=== PATIENT | male | born 1940 | race Native Hawaiian/Other Pacific Islander ===

== ENCOUNTER 2016-11-12 10:24 | Day surgery (SDC) | payer OTHER ==
[~2016-11-12 10:24] MED LIST: ALDACTONE25 MG PO; CARB25TA29 PO; CLARITIN10 MG PO; CLONIDINE0.1 MG PO; CLOP75TA2 PO; FOLI1TAB26 PO; GABA300C2 PO; GABAPENTIN600 MG PO; LASIX40 MG PO; LOSARTAN POT50 MG PO; LYRICA150 MG OR; MAGNESIUM500 M1 PO; METFORMIN1000 MG PO; MILLIPRED5 MG PO; MYSOLINE50 MG PO; NEXIUM40 M1 PO; NIFE60TA5 PO; PERCOCET1 TA1 PO; POTA20TA4 PO; ROPINIROLE2 M1 OR; SIMV20TA2 PO; SYNTHROID50 MCG PO; TIZANIDINE4 M1 PO
== END 2016-11-12 12:30 | disposition home or self-care (01) ==
LOC: OR 10:24
PROC: 08RK3JZ Replacement of Left Lens with Synthetic Substitute, Percutaneous Approach (ICD-10-PCS; principal; 2016-11-12)
DX: H25.812 Combined forms of age-related cataract, left eye (principal)
CPT/HCPCS: 66984; V2632

== ENCOUNTER 2016-12-10 08:55 | Day surgery (SDC) | payer OTHER | END 2016-12-10 11:15 | disposition home or self-care (01) | LOC: OR 08:55 | PROC: 08RJ3JZ Replacement of Right Lens with Synthetic Substitute, Percutaneous Approach (ICD-10-PCS; principal; 2016-12-10) | DX: H25.811 Combined forms of age-related cataract, right eye (principal) | CPT/HCPCS: 66984; V2632 ==

== ENCOUNTER 2017-02-20 08:50 | Outpatient (CLI) | payer OTHER ==
[2017-02-20 09:08] LABS: PLATELET COUNT 213 K/uL (142-355)
[2017-02-20 09:41] LABS: SODIUM 139 mmol/L (136-145)
== END 2017-02-20 19:04 | disposition home or self-care (01) ==
LOC: LABW 08:50
PROVIDERS: Physician Assistant
DX: N40.0 Benign prostatic hyperplasia without lower urinary tract symptoms (principal); E11.9 Type 2 diabetes mellitus without complications; K74.69 Other cirrhosis of liver
CPT/HCPCS: 36415; 80053; 80061; 84153; 84439; 84443; 85027

== ENCOUNTER 2017-03-15 14:54 | Inpatient (IN) | payer OTHER ==
[~2017-03-15] VITALS: Ht 185.4 cm; Wt 90.8 kg
--- NOTE | 2017-03-15 15:20 | NUR ---
PT TO ROOM 1107 VIA WC. PT ALERT AND ORIENTED. 02 ON AT 2L PER NC. NAD NOTED. ASSESSMENT COMPLETE. WOUNDS ASSESSED, MEASURED AND COVERED. IV STARTED TO R HAND X 1 ATTEMPT WITH 22G ANGIOCATH AND LABS DRAWN. PT TOLERATED WELL. ORIENTED PT TO ROOM AND CONTROLS. PT VERBALIZED UNDERSTANDING.
[2017-03-15 16:43] LABS: PLATELET COUNT 240 K/uL (142-355)
--- NOTE | 2017-03-15 17:19 | NUR ---
[id number]- PT TO XRAY
--- NOTE | 2017-03-15 17:51 | NUR ---
PT STILL IN XRAY AT THIS TIME. INFORMED ABX NOT STARTED DUR TO PT BEING IN XRAY SINCE [id number]
[2017-03-15 17:53] VITALS: BP 189/69; TEMP 98.2; Ht 185.4 cm; Wt 90.8 kg
[2017-03-15 20:00] VITALS: BP 199/65; TEMP 98.4
[2017-03-15] MEDS ORDERED: MYSOLINE50 MG OR (23:14)
[2017-03-15] MEDS ORDERED: PERCOCET1 TA3 PO (23:16)
[2017-03-15] MEDS ORDERED: DILTIAZEM HCL180 M2 PO (23:17)
[2017-03-15] MEDS ORDERED: AMIT10TA21 PO (23:18)
[2017-03-15] MEDS ORDERED: DONE5TAB PO (23:18)
[2017-03-15] MEDS ORDERED: MOBIC15 MG PO (23:19)
[2017-03-15] MEDS ORDERED: DULO30CA OR (23:20)
[2017-03-15] MEDS ORDERED: ROPINIROLE2 MG OR (23:21)
[2017-03-16] VITALS: BP 188/78; TEMP 98.2
[2017-03-16 04:00] VITALS: BP 161/80; TEMP 98.5
[2017-03-16 05:40] LABS: POTASSIUM 3.7 mmol/L (3.6-5.2); SODIUM 137 mmol/L (136-145)
[2017-03-16 05:47] LABS: PLATELET COUNT 240 K/uL (142-355)
[2017-03-16 08:00] VITALS: BP 195/82; TEMP 97.6
[2017-03-16 12:00] VITALS: BP 148/64; TEMP 98
[2017-03-16 16:00] VITALS: BP 181/82; TEMP 97.8
[2017-03-16 20:00] VITALS: BP 190/75; TEMP 98.7
[2017-03-17] VITALS: BP 107/71; TEMP 99.4
[2017-03-17 04:00] VITALS: BP 176/77; TEMP 98.7
[2017-03-17 05:10] LABS: PLATELET COUNT 246 K/uL (142-355)
[2017-03-17 05:12] LABS: POTASSIUM 4.1 mmol/L (3.6-5.2)
[2017-03-17 08:00] VITALS: BP 149/71; TEMP 97.8
[2017-03-17 12:00] VITALS: BP 167/62; TEMP 98
[2017-03-17 16:00] VITALS: BP 143/61; TEMP 97.8
[2017-03-17 20:00] VITALS: BP 145/66; TEMP 97.8
[2017-03-18] VITALS: BP 180/78; TEMP 98.2
[2017-03-18 04:00] VITALS: BP 156/71; TEMP 98.4
[2017-03-18 04:45] LABS: PLATELET COUNT 235 K/uL (142-355)
[2017-03-18 04:51] LABS: POTASSIUM 3.8 mmol/L (3.6-5.2)
[2017-03-18 08:00] VITALS: BP 181/79; TEMP 97.9
[2017-03-18 12:00] VITALS: BP 167/88; TEMP 98
[2017-03-18 16:00] VITALS: BP 179/70; TEMP 97.4
--- NOTE | 2017-03-18 16:27 | NUR ---
[id number] WILL CALL PT TO SET UP APPT TIME FOR WOUND CARE INSTRUCTIONS. PT VERBALIZED UNDERSTANDING. PT AWAITING FOR RIDE HOME.
== END 2017-03-18 17:30 | disposition home health service (06) | DRG 638 ==
LOC: MED/SURG 14:54
PROVIDERS: Emergency Medicine; ADMIT Internal Medicine
DX: E11.628 Type 2 diabetes mellitus with other skin complications (principal); L03.116 Cellulitis of left lower limb; L03.115 Cellulitis of right lower limb; E03.8 Other specified hypothyroidism; K21.9 Gastro-esophageal reflux disease without esophagitis; E88.09 Other disorders of plasma-protein metabolism, not elsewhere classified; B95.61 Methicillin susceptible Staphylococcus aureus infection as the cause of diseases classified elsewhere
CPT/HCPCS: 36415; 80048; 80053; 82948; 83735; 85027; 85379; 85651; 86141; 87070; 87077; 87185; 87186; 87205; 96367; 96372; J1815; J1956

== ENCOUNTER 2017-10-18 11:17 | Inpatient (IN) | payer OTHER ==
[~2017-10-18] VITALS: Ht 185.4 cm; Wt 102.2 kg
[2017-10-18] VITALS (18 sets, daily range): BP systolic 114–142; BP diastolic 56–90; TEMP 98.1–98.7; Ht 185.4 cm; Wt 102.2 kg
[~2017-10-18 11:17] MED LIST changes: +AMIT10TA21 PO; +DILTIAZEM HCL180 M2 PO; +DONE5TAB PO; +DULO30CA OR; +MOBIC15 MG PO; +MYSOLINE50 MG OR; +PERCOCET1 TA3 PO; +ROPINIROLE2 MG OR
[2017-10-18 12:12] LABS: PLATELET COUNT 218 K/uL (142-355)
[2017-10-18 12:18] LABS: POTASSIUM 4.3 mmol/L (3.6-5.2)
[2017-10-18] MEDS ORDERED: CLONIDINE HCL0.1 MG PO (14:25)
[2017-10-18] MEDS ORDERED: DIPH25CA90 PO (14:27)
[2017-10-18] MEDS ORDERED: [UNRECOGNIZED DRUG - OTHER] PO (14:29)
[2017-10-18] MEDS ORDERED: GLIM2TAB PO (14:29)
[2017-10-18] MEDS ORDERED: LEVO-T88 MCG PO (14:30)
[2017-10-18] MEDS ORDERED: ENDOCET1 TA1 PO (14:31)
[2017-10-18] MEDS ORDERED: REQUIP XL2 MG OR (14:33)
[2017-10-18] MEDS ORDERED: TAMSULOSIN0.4 MG PO (14:33)
[2017-10-19] VITALS (30 sets, daily range): BP systolic 130–1144; BP diastolic 70–99; TEMP 98.2–99.2
[2017-10-19 06:23] LABS: PLATELET COUNT 208 K/uL (142-355)
[2017-10-19 10:27] LABS: POTASSIUM 4.7 mmol/L (3.6-5.2)
[2017-10-20] VITALS (19 sets, daily range): BP systolic 123–179; BP diastolic 67–113; TEMP 98.1–99
[2017-10-20 11:06] LABS: POTASSIUM 5.1 mmol/L (3.6-5.2)
[2017-10-20 15:36] LABS: PLATELET COUNT 163 K/uL (142-355)
[2017-10-21] VITALS (14 sets, daily range): BP systolic 155–187; BP diastolic 50–102; TEMP 98–98.6
[2017-10-21 06:49] LABS: PLATELET COUNT 160 K/uL (142-355)
[2017-10-21 06:54] LABS: POTASSIUM 3.6 mmol/L (3.6-5.2)
[2017-10-22] VITALS: BP 187/82; TEMP 97.9
[2017-10-22 04:00] VITALS: BP 193/87; TEMP 98.1
[2017-10-22 06:28] LABS: POTASSIUM 3.6 mmol/L (3.6-5.2)
[2017-10-22 06:47] LABS: PLATELET COUNT 171 K/uL (142-355)
[2017-10-22 08:00] VITALS: BP 137/70; TEMP 98
[2017-10-22 12:00] VITALS: BP 185/98; TEMP 98
[2017-10-22 16:00] VITALS: BP 189/99; TEMP 97.8
[2017-10-22 20:00] VITALS: BP 173/88; TEMP 98
[2017-10-23] VITALS: BP 170/80; TEMP 98.1
[2017-10-23 04:00] VITALS: BP 210/120; TEMP 97.5
[2017-10-23 06:33] LABS: POTASSIUM 3.5 mmol/L (3.6-5.2)
[2017-10-23 07:58] LABS: PLATELET COUNT 188 K/uL (142-355)
[2017-10-23] MEDS ORDERED: FURO10IN15 PO (11:56)
[2017-10-23] MEDS ORDERED: ONDA2INJ2 (11:56)
[2017-10-23] MEDS ORDERED: AMBIEN 10MG TAB PO ×2 (11:56)
[2017-10-23] MEDS ORDERED: SUCRALFATE1 GM PO (11:56)
[2017-10-23] MEDS ORDERED: PROTONIX 40MG TAB PO (11:56)
[2017-10-23] MEDS ORDERED: BUDESONID1 INH (11:56)
[2017-10-23] MEDS ORDERED: [UNRECOGNIZED DRUG - CODE] OPTH (11:56)
== END 2017-10-23 12:00 | DRG 682 ==
LOC: ED 11:17 → ICU 14:00 → MED/SURG 10-21 17:02
PROVIDERS: Specialist; ADMIT Family Medicine
DX: N17.8 Other acute kidney failure (principal); L89.323 Pressure ulcer of left buttock, stage 3; L89.313 Pressure ulcer of right buttock, stage 3; W19.XXXA Unspecified fall, initial encounter; D72.828 Other elevated white blood cell count; R06.09 Other forms of dyspnea; E11.9 Type 2 diabetes mellitus without complications; I10 Essential (primary) hypertension; E11.40 Type 2 diabetes mellitus with diabetic neuropathy, unspecified; H10.89 Other conjunctivitis; E88.09 Other disorders of plasma-protein metabolism, not elsewhere classified; J44.9 Chronic obstructive pulmonary disease, unspecified; Z99.81 Dependence on supplemental oxygen; E03.8 Other specified hypothyroidism; Y93.89 Activity, other specified; Y92.89 Other specified places as the place of occurrence of the external cause; B95.2 Enterococcus as the cause of diseases classified elsewhere; B96.1 Klebsiella pneumoniae [K. pneumoniae] as the cause of diseases classified elsewhere; B95.7 Other staphylococcus as the cause of diseases classified elsewhere
CPT/HCPCS: 36415; 36430; 36600; 51702; 80048; 80053; 80076; 80202; 81000; 82550; 82570; 82805; 82962; 83605; 83735; 83880; 84300; 84484; 84540; 85007; 85027; 87040; 87070; 87077; 87088; 87185; 87186; 87205; 93005; 94640; 94664; 94760; 96361; 96365; 96366; 96372; 96375; 99285; J0360; J0696; J1170; J1644; J1940; J1956; J2405; J2920; J2930; P9047